=== PATIENT | female | born 1945 | race Caucasian/White ===

== ENCOUNTER 2018-09-07 11:00 | Observation (INO) ==
[2018-09-06 11:54] LABS: BASO# 0.08 X1000 (0.0-0.2); BASO% 1.2 % (0.0-0.8); EOS# 0.15 X1000 (0.0-0.7); EOS% 2.2 % (0.0-10.0); HEMATOCRIT 26.8 % (37.0-47.0); HEMOGLOBIN 7.9 g/dL (12.0-16.0); LYMPH# 1.52 X1000 (1.2-3.4); LYMPH% 22.6 % (20.5-51.1); MCH 23.7 PG (27-31); MCHC 29.5 g/dL (33-37); MCV 80.5 FL (81-99); MONO# 0.98 X1000 (0.11-0.59); MONO% 14.5 % (1.7-9.3); MPV 9.1 FL (7.4-10.4); NEUT# 4.01 X1000 (1.4-6.5); NEUT% 59.5 % (42.2-75.2); PLT 556 X1000 (130-400); RBC 3.33 XMIL (4.2-5.4); RDW 17.3 % (11.5-14.5); WBC 6.74 X1000 (4.8-10.8)
--- NOTE | 2018-09-06 12:11 | EKG Report ---
Test Performed on : 09/06/2018 10:18:21 AM Test Reason : PAT Blood Pressure : / mmHG Vent. Rate : 085 BPM Atrial Rate : 085 BPM P-R Int : 196 ms QRS Dur : 132 ms QT Int : 460 ms P-R-T Axes : 041 043 -05 degrees QTc Int : 547 ms Normal sinus rhythm. Right bundle branch block Possible Inferior infarct (cited on or before 13-JUN-2018) Abnormal ECG When compared with ECG of 13-JUN-2018 15:59, Significant changes have occurred Confirmed by Tomy LARA, Lonny Zarate ([id number]) on 09/06/2018 3:01:40 PM
[2018-09-06 12:29] LABS: AGAP 14; BUN 42 mg/dL (8-22); CALCIUM 8.9 mg/dL (8.8-10.2); CHLORIDE 100 mmol/L (98-107); COSMO 289; CREATININE 0.9 mg/dL (0.5-0.9); ESTIMATED GFR > 60; GLUCOSE 185 mg/dL (70-104); POTASSIUM 4.1 mmol/L (3.5-5.1); SODIUM 137 mmol/L (136-145); TCO2 23 mmol/L (25-35)
[2018-09-07] MEDS ORDERED: REGLAN ONE (13:21)
[2018-09-07] MEDS ORDERED: PEPCID ONE (13:21)
[2018-09-07] MEDS ORDERED: LR 1,000 ML ONE (13:21)
[2018-09-07] MEDS ORDERED: DIPRIVAN 1% ONE (13:28)
[2018-09-07] MEDS ORDERED: CORDARONE PO ONE (14:00)
[2018-09-07] MEDS ORDERED: CARDIZEM CD PO ONE (14:00)
--- NOTE | 2018-09-07 15:11 | CONSULTATION ---
DATE OF CONSULTATION: 09/07/2018 IMPRESSION: 1. Preoperative evaluation for surgery on sacral decubitus requested. 2. Atherosclerotic coronary artery disease. A. The patient presented with unstable angina in the setting of atrial fibrillation and rapid ventricular rate in late May of this year. She was transferred to [facility] in [place] and had a complicated course. She had coronary artery bypass surgery complicated by postop pneumonia as well as deep venous thrombosis. B. The patient continues without angina. Echocardiography just performed demonstrates normal left ventricular ejection fraction. 3. Longstanding diabetes mellitus requiring insulin for control. 4. Previous hypertension. RECOMMENDATIONS: 1. Given that the patient has no new angina and manifests no signs of congestive heart failure, with echocardiography showing normal left ventricular ejection fraction, she should be an acceptable cardiac risk for surgery for a decubitus ulcer in the sacral region. 2. Obtain fasting lipid profile. HISTORY: This 73-year-old, white female with a past history of atherosclerotic coronary artery disease, coronary bypass surgery a couple of months ago, postoperative pneumonia, postoperative DVT, and insulin-dependent diabetes mellitus came to the hospital today for surgery on a sacral decubitus ulcer. Preoperative cardiac consultation was requested. She is not known to our system. She has longstanding diabetes mellitus for over 20 years and requires insulin. She developed acute chest pain in late May of this year. She was taken by ambulance to [facility] ER. She was found to be in atrial fibrillation with rapid ventricular rate. She describes symptoms of chest discomfort as well as feeling weak and lightheaded. She was transferred to [facility] in [place] as there was no room availability in [place]. She had a rather complicated course there. Records are not yet available. She had a cardiac catheterization and subsequently had an intra-aortic balloon pump performed. She apparently had significant multivessel coronary atherosclerosis. Cardiac catheterization report is not available. She ultimately underwent coronary artery bypass grafting. She recalls that her surgeon remarked that she had a 10% or less injury to her heart in the whole process. Postoperatively, she had problems with pneumonia, delayed recovery, as well as DVT in the lower extremities. She was treated with anticoagulation and antibiotic coverage. She ultimately was discharged to a [facility] facility after a several week hospitalization. She has been slow to regain her previous activity level and has been in the bed quite a bit. She has developed a sacral decubitus ulcer that was apparently present prior to her transfer to the [facility] home. This has been treated with wound VAC. She has since been discharged to home. She has not had any problems with shortness of breath, angina, or palpitations. PAST MEDICAL HISTORY: 1. Atherosclerotic coronary disease as outlined above. 2. Diabetes mellitus for at least 20 years, requiring insulin for control. 3. Previous hypertension. 4. Previous atrial fibrillation. PAST SURGICAL HISTORY: Includes multiple back surgeries, hysterectomy, and coronary artery bypass surgery earlier this year. ALLERGIES: She is allergic or intolerant to penicillin and sulfa. MEDICATIONS: As listed. It is noteworthy that she has been on Eliquis and this has been held one day to facilitate surgery. SOCIAL HISTORY: She does not smoke or use alcohol. FAMILY HISTORY: Positive for coronary artery disease and diabetes mellitus. REVIEW OF SYSTEMS: Pulmonary: Negative. Gastrointestinal: Negative. Constitutional: Negative. Remainder of the review of systems negative/noncontributory with 14 total systems reviewed. PHYSICAL EXAMINATION: Reveals an overweight, older, white female in no distress. Vital Signs: Blood pressure 131/63, heart rate 78 and regular, oxygen saturation 99%. HEENT Examination: Extraocular muscles appear intact. Mucous membranes moist. Neck: Supple without jugular venous distention. There are no carotid bruits. Chest: Clear to auscultation. Cardiac: Examination reveals a regular rate and rhythm without appreciable murmur or gallop. Abdomen: Soft. Bowel sounds are normal. Extremities: Without edema. Neurologic: Examination reveals her to be alert and fully oriented. Speech is fluent. She moves all 4 extremities equally well. Skin: Warm and dry. Psychiatric: Examination reveals her mood to be appropriate. DIAGNOSTIC DATA: A recent 12 lead EKG is reviewed and demonstrates normal sinus rhythm, right bundle branch block, and possible inferior infarct of undetermined age. Recent laboratory data is reviewed and includes a white blood cell count of 6.74, hematocrit 26.8, hemoglobin 7.9, platelet count of 556,000. Sodium 137, potassium 4.1, chloride 100, carbon dioxide 23, BUN 42, creatinine 0.9, glucose 185. Total triglycerides 50, total cholesterol 57, LDL cholesterol 27, HDL cholesterol 26, VLDL cholesterol 10. cc: Eduardo Alfonso MD
[2018-09-07] MEDS ORDERED: NEO-SYNEPHRINE ONE (15:38)
[2018-09-07] MEDS ORDERED: DECADRON ONE (15:38)
[2018-09-07] MEDS ORDERED: ZOFRAN ONE (15:38)
[2018-09-07] MEDS: DILAUDID ONE ×3 (15:55→16:15)
[2018-09-07] MEDS ORDERED: DILAUDID IV PRN (16:37)
[2018-09-07] MEDS ORDERED: NORCO-7.5 PO PRN (16:37)
[2018-09-07] MEDS ORDERED: ZOFRAN IV PRN (16:37)
[2018-09-07] MEDS: HUMULIN R SUBQ SCH ×2 (18:24→21:49)
[2018-09-07] MEDS ORDERED: LIPITOR PO SCH (21:00)
[2018-09-07] MEDS ORDERED: RESTORIL PO SCH (21:00)
--- NOTE | 2018-09-07 21:32 | OPERATIVE NOTE ---
PROCEDURE DATE: 09/07/2018 PREOPERATIVE DIAGNOSES: 1. Infected sacral decubitus ulcer stage III. 2. Coronary artery disease. POSTOPERATIVE DIAGNOSES: 1. Infected sacral decubitus ulcer stage IV. 2. Coronary artery disease. OPERATION: Excisional debridement of skin, subcutaneous tissue and fascia of sacral ulcer, greater than 20 cm2. SURGEON: Noah Del Valle MD ANESTHESIA: General. ESTIMATED BLOOD LOSS: 75 mL COMPLICATIONS: None apparent. SPECIMENS: None. FINDINGS: The small tract that she had preoperatively was leading to an extensive large sacral decubitus ulcer measuring 10 x 7 x 4 cm, that was irregular in shape with excessive hypergranulation tissue, necrotic subcutaneous fat and fascia, and some purulence. The extent of this wound carried down to the thin soft tissue over her sacral bone, although there was no direct bone completely exposed. I do not think she has sacral osteoporosis. There were multiple sinus tracts tunneling away from the central ulcer. All of these were opened up and debrided sharply, and excised back to healthier bleeding tissue. PROCEDURE: She was brought to the operating room and placed on her left side. General anesthesia was induced prior to this. A beanbag held her in place. She was prepped and draped in the usual sterile fashion. A knife was used to open up the tract of the of the open wound and tunneling that I had identified preoperatively. After doing this, it became apparent that there was a much more extensive ulcer bed that was not healing. I followed the tracking into 3 separate directions, one toward her right and 2 toward her left. I opened these up sharply with a knife and had the above findings. The wound bed was extensively debrided sharply with a curette, the knife and cautery back to healthier bleeding edges. I excised this nonviable tissue, which included all layers except the bone. I then began working on hemostasis. There was a moderate amount of bleeding secondary to her Eliquis. Cautery was used for hemostasis as well as direct pressure. I also used Surgicel gauze. Once I was satisfied that there was minor oozing, I then packed the wound first with Surgicel gauze, then Vashe-moistened Kerlix, and then 4 x 4s and an ABD pad were placed. She tolerated this well. There were no apparent complications. She will be admitted for further observation. cc: Noah Del Valle MD
[2018-09-07] MEDS: DOXYCYCLINE PO SCH (21:48)
[2018-09-08 03:59] LABS: URINE SOURCE CLEAN CATCH
[2018-09-08 04:04] LABS: BILIRUBIN URINE NEGATIVE (NEGATIVE); BLOOD URINE NEGATIVE (NEGATIVE); COLOR YELLOW; GLUCOSE URINE NEGATIVE (NEGATIVE); KETONE URINE NEGATIVE (NEGATIVE); LEUKOCYTES URINE NEGATIVE (NEGATIVE); NITRITE URINE NEGATIVE (NEGATIVE); PROTEIN URINE TRACE mg/dL (NEGATIVE); SP GRAVITY URINE 1.018; TURBIDITY URINE CLEAR (CLEAR); UROBILINOGEN URINE NORMAL (NORMAL)
[2018-09-08 04:05] LABS: UR EPITHELIAL CELLS <10 /HPF (<10); URINE BACTERIA NEGATIVE /HPF; URINE RBC <10 /HPF (<10); URINE WBC <10 /HPF (<10)
[2018-09-08] MEDS: HUMULIN R SUBQ SCH ×2 (06:42→12:27)
[2018-09-08] MEDS ORDERED: LANTUS INSULIN SUBQ SCH (09:00)
[2018-09-08] MEDS ORDERED: LASIX PO SCH (09:00)
[2018-09-08] MEDS ORDERED: CORDARONE PO SCH (09:00)
[2018-09-08] MEDS ORDERED: CELEXA PO SCH (09:00)
[2018-09-08] MEDS ORDERED: FLOMAX PO SCH (09:00)
[2018-09-08] MEDS ORDERED: CARDIZEM CD PO SCH (09:00)
[2018-09-08] MEDS ORDERED: KLOR-CON PO SCH (09:00)
[2018-09-08] MEDS ORDERED: SYNTHROID PO SCH (09:00)
[2018-09-08] MEDS ORDERED: EFFEXOR XR PO SCH (09:00)
[2018-09-08] MEDS ORDERED: PERIDEX MT SCH (09:00)
[2018-09-08] MEDS ORDERED: ELIQUIS PO SCH (09:00)
[2018-09-08] MEDS: DOXYCYCLINE PO SCH (09:33)
--- NOTE | 2018-09-08 09:48 | ECHO REPORT ---
ORDER DATE: 09/07/2018 INTERPRETING PHYSICIAN: Dr. Huerta CLINICAL INDICATIONS: Stroke, previous bypass. M-MODE MEASUREMENTS: Left ventricle end diastole: 5.6 cm. Left ventricle end systole: 4.2 cm. Posterior wall: 0.9 cm. Interventricular septum: 0.9 cm. Left atrium: 3.2 cm. Aortic diameter: 3.0 cm. SUMMARY OF 2-DIMENSIONAL IMAGING: The left ventricular function appears to be normal. Ejection fraction 56%. Optison was added to aid in visualization of the endocardium. There is no wall motion abnormality. The right ventricle appears to be normal. The left atrium may be mildly enlarged. The mitral valve shows normal opening. Color flow mapping indicates mild degree of regurgitation. Pulse wave Doppler of mitral inflow shows mild reversal of the E/A ratio. Ratio is 0.8. Tissue Doppler of septal and lateral mitral annulus averages 9 cm per second. Pulmonary venous flow shows some predominance of the diastolic component. There is really no obvious diastolic dysfunction. Aortic valve is normal. Color flow mapping unremarkable. Tricuspid valve shows mild degree of regurgitation. Pulmonary pressure is probably in the order of 30-35 mmHg. Pulmonic valve appears to be grossly normal. Epicardial fat pad is noted. This study was difficult and contrast had to be added. cc: MD Eduardo Mauro MD Jason R. Seale, MD MTDD
[2018-09-08 11:25] VITALS: BP 115/56
--- NOTE | 2018-09-08 13:39 | GENERAL SURGERY PROGRESS NOTE ---
DATE: 09/08/2018 SUBJECTIVE: The patient feels okay. No problems overnight. OBJECTIVE: She is afebrile. Vital signs are stable. General: She is awake, alert, and oriented x3. No acute distress. Skin: Her sacral wound was examined. The packing was removed. There were no signs of any active bleeding or gross pus. ASSESSMENT AND PLAN: A 73-year-old female status post extensive debridement of infected sacral decubitus ulcer. The wound appears clean now and we will proceed with negative pressure wound therapy and discharge home. cc: Noah Del Valle MD
== END 2018-09-08 15:09 | disposition home health service (06) ==
LOC: 4N 11:00 → PAT 11:00
PROVIDERS: ADMIT Surgery; ATTEND Surgery
CPT/HCPCS: 80048; 80061; 81001; 82948; 83721; 85025; 93005; 93010; 93306; 93308; 94761; 94799; A9270; C8929; J1100; J1170; J1815; J2370; J2405; J7120; Q9957; XXXXX

== ENCOUNTER 2018-09-12 12:13 | Inpatient (IN) ==
[2018-09-12 13:26] LABS: BASO# 0.04 X1000 (0.0-0.2); BASO% 0.6 % (0.0-0.8); EOS% 1.5 % (0.0-10.0); HEMATOCRIT 18.8 % (37.0-47.0); HEMOGLOBIN 5.5 g/dL (12.0-16.0); LYMPH# 1.17 X1000 (1.2-3.4); LYMPH% 17.3 % (20.5-51.1); MCH 23.2 PG (27-31); MCHC 29.3 g/dL (33-37); MCV 79.3 FL (81-99); MONO# 0.58 X1000 (0.11-0.59); MONO% 8.6 % (1.7-9.3); MPV 9.5 FL (7.4-10.4); NEUT# 4.87 X1000 (1.4-6.5); PLT 440 X1000 (130-400); RBC 2.37 XMIL (4.2-5.4); RDW 16.5 % (11.5-14.5); WBC 6.76 X1000 (4.8-10.8)
[2018-09-12 13:34] LABS: AGAP 12; ALB/GLOB RATIO 1.3; ALBUMIN 3.2 g/dL (3.5-5.0); ALKALINE PHOSPHATASE 125 U/L (32-104); BUN 28 mg/dL (8-22); CALCIUM 8.7 mg/dL (8.8-10.2); CHLORIDE 101 mmol/L (98-107); COSMO 287; CREATININE 0.7 mg/dL (0.5-0.9); ESTIMATED GFR > 60; GLUCOSE 209 mg/dL (70-104); GOT 13 U/L (10-30); GPT 8 U/L (10-36); SODIUM 138 mmol/L (136-145); TCO2 25 mmol/L (25-35); TOTAL BILIRUBIN 0.21 mg/dL (0.20-1.00); TOTAL PROTEIN 5.6 g/dL (6.3-8.3)
[2018-09-12] MEDS ORDERED: NS 1,000 ML IV ONE (13:38)
[2018-09-12 14:02] LABS: IRON SATURATION 5 %; TIBC 215 ug/dL; TOTAL IRON 10 ug/dL (49-151); UNBOUND IRON 205 ug/dL (112-346)
[2018-09-12 14:04] LABS: INR 1.45; PROTIME 18.7 Seconds (11.0-16.0)
[2018-09-12 14:27] LABS: URINE SOURCE CLEAN CATCH
[2018-09-12 14:29] LABS: FERRITIN 16 ng/mL (13-150)
[2018-09-12 14:39] LABS: BILIRUBIN URINE NEGATIVE (NEGATIVE); BLOOD URINE NEGATIVE (NEGATIVE); COLOR YELLOW; GLUCOSE URINE NEGATIVE (NEGATIVE); KETONE URINE TRACE mg/dL (NEGATIVE); LEUKOCYTES URINE NEGATIVE (NEGATIVE); NITRITE URINE NEGATIVE (NEGATIVE); PH URINE 5.5; PROTEIN URINE NEGATIVE (NEGATIVE); SP GRAVITY URINE 1.019; TURBIDITY URINE CLEAR (CLEAR); UROBILINOGEN URINE NORMAL (NORMAL)
[2018-09-12 14:40] LABS: UR EPITHELIAL CELLS <10 /HPF (<10); URINE BACTERIA NEGATIVE /HPF; URINE RBC <10 /HPF (<10); URINE WBC <10 /HPF (<10)
[2018-09-12 14:41] LABS: EOS 2 % (1-10); LYMPHS 13 % (21-51); MONO 7 % (1-9); SEGS 78 % (42-75)
[2018-09-12 14:42] LABS: ANISOCYTOSIS 1+; HYPOCHROM 3+; LARGE PLATELETS OCCASIONAL
[2018-09-12 15:21] LABS: HEMOGLOBIN A1C 6.7 % (4.8-6.0)
--- NOTE | 2018-09-12 15:29 | HISTORY AND PHYSICAL ---
Ms. Yang, 73-year-old. She had a heart attack in May. Went to [facility] in [place], had lay flat on back with a balloon pump and then underwent 3-vessel bypass surgery. Postop she developed a sacral skin ulcer. It was debrided and started on wound VAC on Wednesday. Today is Wednesday so approximately [address] Del Valle and their concern was that she just was very weak, she looks very pale and they brought her here to the emergency room. They do not report any fever, chills. She has not been eating a whole lot but they have not noticed a drastic weight change and no blood noted in the stool. Stools may have been a little bit dark. They had not really noted that. No vomiting or diarrhea. ALLERGIES: Penicillin, sulfa drugs. FAMILY HISTORY: Mother with arthritis and colon cancer. Brother and father with heart disease, heart disease in male family members before age 55, course she just recently had 3-vessel bypass. SOCIAL HISTORY: Rare drink of alcohol on occasion. Tobacco never smoked. PHYSICAL EXAM: Awake and alert, looks very pale. Skin very pale. Temperature 98.1 degrees, pulse 78, respirations 18, blood pressure 116/68. Pupils are equal. No distended neck veins. CVP less than 6 cm from the right atrium. LUNGS: Clear anterolateral. CARDIOVASCULAR: Regular rhythm, rate without murmur or S3. ABDOMEN: Soft. SKIN: Warm and dry. Weight 190 pounds, height 5 feet 5 inches. No rashes. Conjunctiva pale with pallor. Gingiva with pallor. No oral, nasal mucosa lesions I could appreciate. She has a sacral wound VAC in place. LAB: White count 6760, hematocrit 18, hemoglobin 5.5, platelet count 440,000. Sodium 138, potassium 4.0, chloride 100, bicarb 25, BUN 28, creatinine 0.7, blood sugar 209. Her iron was 10, total iron binding capacity 215, ferritin was 16, transaminases unremarkable. Urine pending at this time. Stools Hemoccult was heme positive. ASSESSMENT AND PLAN: 1. Microcytic anemia, suspect gastrointestinal blood loss possibly from gastritis. Will put her on proton pump inhibitor. Right now we will put her on IV either Nexium or Protonix, whichever is available 40 mg IV q.12 hours. I think we can give that to her p.o. though she is able to swallow so what will do is give her Protonix 40 mg p.o. twice a day. We will start her on Carafate 1 g p.o. 4 times a day. I am going to give her a full liquid diet for today and probably advance that tomorrow. We are going to give her 2 units of packed red blood cells and then give her normal saline and run that in at 75 mL an hour. I do not have any report of congestive heart failure, course she just had bypass surgery. We will watch her volume status but I think she can handle the volume. 2. Coronary artery disease status post triple bypass surgery back in end of May. She has not had any chest pain or complaints of palpitations. 3. History of hypercholesterolemia. Continue Lipitor. 4. History of atrial fibrillation. She is on amiodarone 200 mg a day and she is on Eliquis and I think we will go ahead and continue the Eliquis at 5 mg. I think she is supposed to be taking that twice a day. 5. Sacral decubitus. She has been on hydroxyzine 100 mg b.i.d. by mouth and I think they grew out Escherichia coli and Staph aureus from the cultures. We will get surgery to look at the wound and get Irene to help with wound care. 6. Depression and anxiety. She is on Effexor. We will continue that. She has taken tamsulosin which I believe that is for urinary frequency or hyperactive bladder but I guess will continue that Flomax 0.4 mg daily. 7. Diabetes mellitus. Follow her pattern sugars and put her on sliding scale. She was getting Lantus 24 units q.a.m. and will continue that. cc: MD Noah Etienne MD
[2018-09-12] MEDS: HUMULIN R SUBQ SCH ×2 (16:20→20:11)
[2018-09-12] MEDS ORDERED: CARAFATE PO SCH (17:00)
--- NOTE | 2018-09-12 18:40 | GASTROENTEROLOGY CONSULTATION ---
DATE: 09/12/2018 REASON FOR CONSULTATION: Profound microcytic anemia. HISTORY OF PRESENT ILLNESS: Pleasant, 73-year-old lady who had a heart attack and had triple- vessel bypass followed by [*]. On Wednesday she had wound debridement. I am not sure how much she bled but she was feeling very weak. There was a question whether or not she has dark stool. She has not had previous history of GI bleed. She is on Eliquis. ALLERGIES: Penicillin and sulfa. FAMILY HISTORY: Colon cancer with the mother, heart disease. SOCIAL: Does not smoke. Drinks socially. PHYSICAL EXAMINATION: General: Awake, alert, very pale. Vital signs: Temp 98 degrees, pulse 78, respiration 18, blood pressure 116/68. Lungs: Clear. Heart: Regular rhythm. Abdomen: Soft. Skin: She has a sacral wound with VAC in place. LABORATORY: White count 6,000, hemoglobin 5.5, hematocrit 18. Iron 10, total iron binding capacity 215, ferritin 16. IMPRESSIONS: 1. Microcytic anemia, multifactorial, could be related to her wound debridement, Eliquis, and recent bypass or a combination of the above, could be an upper GI source. 2. Coronary artery disease. 3. Hypercholesteremia. 4. Atrial fibrillation. 5. Sacral decubitus ulcer. 6. Gastrointestinal prophylaxis. PLAN: She is on Protonix. Will schedule for EGD tomorrow and decide further management. cc: Diamond Huitron MD
[2018-09-12] MEDS: NORCO-7.5 PO PRN (20:10)
[2018-09-12] MEDS: LIPITOR PO SCH (20:10)
[2018-09-12] MEDS: PRILOSEC PO SCH (20:10)
[2018-09-12] MEDS: RESTORIL PO SCH (20:11)
--- NOTE | 2018-09-12 20:21 | GENERAL SURGERY CONSULTATION ---
DATE: 09/12/2018 HISTORY OF PRESENT ILLNESS: This is a 73-year-old female who developed a decubitus wound after recent cardiac intervention and complicated hospital course. She was debrided last Wednesday by Dr. Del Valle and has a wound VAC in place. Noted to be hypotensive via the home health nurse and was transferred to the ER for further management of this. Patient says she felt okay until yesterday she began feeling kind of weak, presyncopal at times. No fevers, no tachycardia. She denies any GI bleeding. Wound VAC change been going okay. MEDICAL HISTORY: Coronary disease. SURGICAL HISTORY: Coronary bypass including balloon pump. She is on Eliquis. Decubitus debridement, coronary artery bypass grafting. SOCIAL HISTORY: No tobacco, alcohol, or drugs. She has a daughter here with her. FAMILY HISTORY: Reviewed and significant for colon cancer in her mother. REVIEW OF SYSTEMS: Otherwise 10 point negative. EXAM: She is afebrile, pulse 84, blood pressure 125/59, O2 saturation 100%.General: She is alert, no acute distress. HEENT: No scleral icterus. No cervical mass. Cardiovascular: Normal rate. Pulmonary: No increased work of breathing. Abdomen: Soft, nontender, nondistended. Musculoskeletal: There is a sacral wound VAC with no cellulitis. No crepitus. No visible necrosis. Integument: Is warm, dry. Peripheral vascular: No lower extremity edema. Psychiatric: Appropriate affect. Neurologic: Generalized weakness. LAB: White count 6, hematocrit is 18. INR is 1.48, creatinine 0.7, bilirubin is normal. Troponins are normal. Urinalysis shows trace ketones but otherwise negative. ASSESSMENT AND PLAN: This is a 73-year-old female with anemia. She has a decubitus wound. Will keep her VAC in place and plan on changing this tomorrow. I do not see signs of infection here. Dr. Huitron has been involved from a gastroenterology standpoint. I do agree with endoscopy to work up for anemia holding anticoagulants she is currently been transfused and would continue with this. Will follow along. Dr. Del Valle will be back tomorrow. cc: Elkin Sargent MD
[2018-09-13 03:32] LABS: URINE SOURCE CATH
[2018-09-13 03:35] LABS: BILIRUBIN URINE NEGATIVE (NEGATIVE); BLOOD URINE NEGATIVE (NEGATIVE); COLOR YELLOW; GLUCOSE URINE NEGATIVE (NEGATIVE); KETONE URINE NEGATIVE (NEGATIVE); LEUKOCYTES URINE NEGATIVE (NEGATIVE); NITRITE URINE NEGATIVE (NEGATIVE); PROTEIN URINE TRACE mg/dL (NEGATIVE); TURBIDITY URINE CLEAR (CLEAR); UROBILINOGEN URINE NORMAL (NORMAL)
[2018-09-13 03:37] LABS: UR EPITHELIAL CELLS <10 /HPF (<10); URINE BACTERIA NEGATIVE /HPF; URINE RBC <10 /HPF (<10); URINE WBC <10 /HPF (<10)
[2018-09-13] MEDS: SYNTHROID PO SCH (06:01)
[2018-09-13] MEDS: PRILOSEC PO SCH ×2 (06:02→21:09)
[2018-09-13] MEDS: HUMULIN R SUBQ SCH ×4 (06:02→21:09)
[2018-09-13 07:36] LABS: BASO# 0.09 X1000 (0.0-0.2); BASO% 1.1 % (0.0-0.8); EOS# 0.35 X1000 (0.0-0.7); EOS% 4.4 % (0.0-10.0); HEMATOCRIT 26.1 % (37.0-47.0); LYMPH# 2.22 X1000 (1.2-3.4); MCH 24.7 PG (27-31); MCHC 30.7 g/dL (33-37); MCV 80.6 FL (81-99); MONO# 1.11 X1000 (0.11-0.59); MPV 9.4 FL (7.4-10.4); NEUT# 4.16 X1000 (1.4-6.5); NEUT% 52.5 % (42.2-75.2); PLT 419 X1000 (130-400); RBC 3.24 XMIL (4.2-5.4); RDW 16.2 % (11.5-14.5); WBC 7.93 X1000 (4.8-10.8)
[2018-09-13 07:46] LABS: AGAP 13; BUN 16 mg/dL (8-22); CALCIUM 7.9 mg/dL (8.8-10.2); CHLORIDE 106 mmol/L (98-107); COSMO 287; CREATININE 0.6 mg/dL (0.5-0.9); ESTIMATED GFR > 60; GLUCOSE 152 mg/dL (70-104); MAGNESIUM 1.8 mg/dL (1.5-2.7); POTASSIUM 3.5 mmol/L (3.5-5.1); SODIUM 142 mmol/L (136-145); TCO2 23 mmol/L (25-35)
[2018-09-13] MEDS ORDERED: DIPRIVAN 1% ONE (08:28)
[2018-09-13] MEDS ORDERED: XYLOCAINE-MPF 2% ONE (08:28)
--- NOTE | 2018-09-13 10:21 | OPERATIVE NOTE ---
PROCEDURE DATE: 09/13/2018 PROCEDURE PERFORMED: Upper GI endoscopy. PROVIDER: Franc Alfonso MD. INDICATIONS: Anemia, rule out upper GI bleeding. MEDICATIONS: Monitored anesthesia care. DESCRIPTION OF PROCEDURE: Prior to the procedure, history and physical was performed. Patient's medication and allergies were reviewed. The patient's tolerance to previous anesthesia was also reviewed. The risks and benefits of the procedure, and the sedation options and risks were discussed with the patient. All questions were answered. Informed consent was obtained. After reviewing the risks and benefits, and the patient was deemed in satisfactory condition to undergo the procedure, the endoscope was passed under direct visualization. Throughout the procedure, the patient's blood pressure, pulse, and oxygen saturation were monitored continuously. The endoscope was introduced through the mouth and advanced to the second part of the duodenum. The upper GI endoscopy was accomplished without difficulty. The patient tolerated the procedure well. COMPLICATIONS: No immediate complications. ESTIMATED BLOOD LOSS: Minimal. FINDINGS: Normal esophagus. Z-line was regular at 40 cm from the incisors. Normal stomach. Random gastric biopsies were obtained to rule out H. pylori. Normal duodenum. Random duodenal biopsies were obtained to rule out celiac disease. RECOMMENDATIONS: Await pathology results. Resume diabetic diet. The patient will need outpatient colonoscopy when she recovers from her recent surgery. Start iron replacement therapy. No indication for Carafate or PPI at this time. We will follow with you. Please call with any questions or concerns.
[2018-09-13] MEDS: CELEXA PO SCH (11:28)
[2018-09-13] MEDS: FLOMAX PO SCH (11:29)
[2018-09-13] MEDS: CORDARONE PO SCH (11:29)
[2018-09-13] MEDS: EFFEXOR XR PO SCH (11:30)
[2018-09-13] MEDS: LANTUS INSULIN SUBQ SCH (11:30)
--- NOTE | 2018-09-13 15:50 | PROVIDER DOCUMENTATION ---
This chart was entered by Emilia Pham Scribe, acting as scribe for John Byrnes MD. HPI-General Adult - General Chief Complaint: Weakness Stated Complaint: WEAKNESS Time Seen by Provider: 09/12/18 12:44 Source: patient, family (daughter) Allergies/Adverse Reactions: Patient Allergies Allergy/AdvReac Type Severity Reaction Status Date / Time Penicillins Allergy SWELLING Verified 09/12/18 14:47 Sulfa (Sulfonamide Allergy ITCHING Verified 09/12/18 14:47 Antibiotics) Home Medications: Home Medication List Medication Instructions Recorded Confirmed Last Taken Type ATORVAstatin [Lipitor] 80 mg PO QHS 09/06/18 09/12/18 09/06/18 23:00 History 80 Amiodarone [Cordarone] 200 mg PO DAILY 09/06/18 09/12/18 09/06/18 11:00 History 200 Apixaban [Eliquis] 5 mg PO DAILY 09/06/18 09/12/18 09/06/18 23:00 History 5 Citalopram [Celexa] 10 mg PO DAILY 09/06/18 09/12/18 09/06/18 23:00 History 10 Diltiazem HCl [Diltiazem 24Hr Cd] 300 mg PO DAILY 09/06/18 09/12/18 09/06/18 11:00 History 300 Doxycycline Hyclate 100 mg PO BID 09/06/18 09/12/18 09/06/18 23:00 History 100 Furosemide [Lasix] 40 mg PO DAILY 09/06/18 09/12/18 09/06/18 11:00 History 40 Insulin Glargine,Hum.rec.anlog 24 unit SQ QAM 09/06/18 09/12/18 09/06/18 11:00 History [Lantus Solostar] 24 Insulin Human Regular [Humulin R] 0 unit SUBQ DIRECTED PRN PRN 09/06/18 09/12/18 09/07/18 00:00 History 4 Levothyroxine [Synthroid] 100 microgm PO DAILY 09/06/18 09/12/18 09/06/18 07:00 History 100 Potassium Chloride 20 meq PO DAILY 09/06/18 09/12/18 09/06/18 23:00 History 20 Tamsulosin [Flomax] 0.4 mg PO DAILY 09/06/18 09/12/18 09/06/18 History 0.4 Temazepam 15 mg PO QHS 09/06/18 09/12/18 09/06/18 23:00 History 15 Venlafaxine E.r. [Effexor Xr] 150 mg PO DAILY 09/06/18 09/12/18 09/06/18 11:00 History 150 Hydrocodone/APAP 7.5 mg/325 mg 1 ea PO EVERY OTHER DAY PRN #20 tab 09/08/18 09/12/18 Unknown Rx [[place]-7.5] - History of Present Illness -Gen Adult Nature of Presenting Problems: Patient is a 73 year old female who presents with buttocks pain, nausea, fatigue and weakness. Patient's daughter states patient had open heart surgery on June 20 and while the patient was in the hospital she formed a bed sore on her buttocks. Daughter reports patient had a wound vac placed [address] Del Valle. Daughter states patient is currently on Doxy. Daughter reports the home health nurse stated patient's blood pressure was 80/40 and her heart rate was in the 50's. Location of Pain/Injury: reports: other (buttocks) Pain Radiation: reports: no radiation Quality of Pain: reports: aching Severity: reports: mild Onset/Duration: reports: gradual Timing: reports: still present Context/Activities at Onset: reports: light activity Modifying Factors: improves with: nothing Associated Symptoms: reports: fatigue, nausea, weakness Similar Symptoms Previously?: Yes Recently seen or treated by another doctor?: Yes Review of Systems - Adult - REVIEW OF SYSTEMS - ADULT Constitutional: reports: see HPI, adrián. denies: chills, fever Eyes: reports: no symptoms reported Ears, Nose, Mouth & Throat: reports: no symptoms reported Cardiovascular: reports: no symptoms reported Respiratory: reports: no symptoms reported Gastrointestinal: reports: see HPI, nausea. denies: abdominal pain, diarrhea, vomiting Genitourinary: reports: no symptoms reported Musculoskeletal: reports: see HPI, muscle weakness, other (buttocks pain). denies: back pain, muscle aches, neck pain Integumentary: reports: no symptoms reported Neurological: reports: no symptoms reported Psychiatric: reports: no symptoms reported Endocrine: reports: no symptoms reported Hematologic/Lymphatic: reports: no symptoms reported Allergic/Immunologic: reports: no symptoms reported All Other Systems: Reviewed and Negative Past History - Adult - PAST MEDICAL HISTORY-ADULT Review of Records: reports: Nursing Assessment Review, Medications Reviewed, Social history reviewed & non-contributory. Major Childhood Illnesses: reports: denies history Cardiovascular: reports: HTN Respiratory: reports: sleep apnea Gastrointestinal: reports: denies history Obstetrical/Gynecological: reports: denies history Genitourinary: reports: denies history Musculoskeletal: reports: denies history Neurological: reports: CVA Endocrine/Immune: reports: Diabetes, thyroid disorder Other Conditions: reports: denies history - PRIOR SURGERIES/PROCEDURES Surgical/Procedure History: reports: reviewed, not pertinent, hysterectomy - IMMUNIZATION STATUS Childhood Immunizations: See Nurse Assessment Flu Vaccine: See Nurse Assessment - FAMILY HISTORY Family History: reviewed, not pertinent - SOCIAL HISTORY Smoking: denies Substance Use: denies Living Situation: family Physical Exam-General - PHYSICAL EXAM-ADULT Initial Vital Signs Reviewed: Yes - CONSTITUTIONAL General Appearance: alert, no apparent distress. negative: lethargic, slow to respond - HEAD, EARS, NOSE, MOUTH & THROAT HENMT: normocephalic/atraumatic. negative: angioedema, hearing deficit - RESPIRATORY Respiratory: chest non-tender, lungs clear, normal breath sounds. negative: crackles, rhonchi - CARDIOVASCULAR Cardiovascular: normal peripheral pulses, regular rate, rhythm. negative: tachycardia, systolic murmur - GASTROINTESTINAL (ABDOMEN) Abdominal Exam: normal bowel sounds, non tender, soft. negative: guarding, rebound - MUSCULOSKELETAL Back Exam: normal inspection. negative: ecchymosis, swelling Extremity: non-tender, normal inspection. negative: deformity, erythema - SKIN Integumentary: normal color, normal turgor, warm/dry, other (wound vac present. no erythema or swelling present to wound vac site.). negative: cyanosis, ecchymosis, erythema, jaundice - NEUROLOGIC Neurologic: grossly normal. negative: aphasia, facial droop - PSYCHIATRIC Psych/Mental Status: normal mood/affect, oriented x 3. negative: anxious Progress - PLAN OF CARE/RESULTS Progress/Plan/Lab Results: Orders Category Date Time Status CBC WITH ELECTRONIC DIFF [HEME] Stat Lab 09/12/18 12:36 Uncollected COMPREHENSIVE METABOLIC PANEL [CHEM] Stat Lab 09/12/18 12:37 Uncollected TROPONIN T Stat Lab 09/12/18 12:37 Uncollected URINALYSIS [URINALYSIS] Stat Lab 09/12/18 12:37 Uncollected EKG [EKG] Stat Ther 09/12/18 12:37 Ordered Result Diagrams: 09/13/18 06:55 09/13/18 06:55 - CONSULTS/PCP/HOSPITALIST Notification #1 *Consult/PCP/Hospitalist*: JOMAR Larkin for Hospitalist Time Discussed: 13:36 (Dr. Farias accepted admit. ) Reason/Comments: Dr. Byrnes consulted with Trae about patient. Consult Disposition: Will see in ED, Admit Departure - Departure Date of Disposition Decision: 09/12/18 Time of Disposition Decision: 13:37 DIAGNOSIS: Anemia, GI bleeding Disposition: ADMITTED INPATIENT 09 Certified Medical Emergency: Emergent Condition: Fair - Critical Care Note This patient required my direct & personal management of CC.: Yes Total Time (mins): 35 Critical Care Statement: This patient required my direct personal management to treat or rule out processes, the absence of which, could potentiallly result in sudden, clinically significant life or limb threatening deterioration. Attestation - Physician/ TOD Attestation Patient care was provided by Advanced Practice Provider:: No The physician spent face to face time with patient:: Yes Advanced Practice Provider documentation review:: Supervising physician onsite and consulted in the evaluation and care of this patient. The physician did have a face to face encounter with the patient. This chart was documented by the indicated scribe, (Emilia Pham, Kory) and accurately reflects the services I performed and decisions made by me, John Byrnes MD, as attested by the provider's signature.
--- NOTE | 2018-09-13 16:43 | PROGRESS NOTE ---
DATE: 09/13/2018 SUBJECTIVE: Ms Yang is feeling much better since her transfusion. She remains afebrile. She has been able to walk to the bathroom. She is tolerating soft diet. No nausea. No pain. OBJECTIVE: Temperature 98.1 degrees, pulse 84, respirations 16, blood pressure 132/62. Pupils are equal and round. No distended neck veins. Lungs are clear in all lung null. Cardiovascular regular rate without murmur or S3. Urine output is 700 mL. ASSESSMENT AND PLAN: Patient underwent upper GI endoscopy and everything looked pretty, normal stomach. Random gastric biopsies obtained to rule out H pylori. Normal duodenum and random duodenal biopsies obtained to rule out celiac disease. So, she is on I think a soft diet, diabetic diet. We started on iron supplement and continue Carafate and PPIs. Her lab this morning hematocrit came from 18 up to 26, her hemoglobin from 5 to 8, MCV was 80. Chemistries look good. We will DC her Gaspar catheter and a good possible she could go home tomorrow. Note the B12 was 700, folate was 1400. cc: Grant Farias MD
[2018-09-13] MEDS: LIPITOR PO SCH (21:09)
[2018-09-13] MEDS: NORCO-7.5 PO PRN (21:09)
[2018-09-13] MEDS: RESTORIL PO SCH (21:09)
[2018-09-14] MEDS: PRILOSEC PO SCH (06:15)
[2018-09-14] MEDS: NORCO-7.5 PO PRN (06:15)
[2018-09-14] MEDS: SYNTHROID PO SCH (06:15)
[2018-09-14 07:05] LABS: BASO# 0.05 X1000 (0.0-0.2); BASO% 0.6 % (0.0-0.8); EOS# 0.46 X1000 (0.0-0.7); EOS% 5.6 % (0.0-10.0); HEMATOCRIT 26.2 % (37.0-47.0); LYMPH# 2.31 X1000 (1.2-3.4); LYMPH% 28.2 % (20.5-51.1); MCH 24.3 PG (27-31); MCHC 30.5 g/dL (33-37); MCV 79.6 FL (81-99); MONO# 1.34 X1000 (0.11-0.59); MONO% 16.3 % (1.7-9.3); MPV 9.2 FL (7.4-10.4); NEUT# 4.04 X1000 (1.4-6.5); NEUT% 49.3 % (42.2-75.2); PLT 418 X1000 (130-400); RBC 3.29 XMIL (4.2-5.4); RDW 15.9 % (11.5-14.5)
[2018-09-14 07:31] LABS: AGAP 11; BUN 12 mg/dL (8-22); CHLORIDE 103 mmol/L (98-107); COSMO 278; CREATININE 0.6 mg/dL (0.5-0.9); ESTIMATED GFR > 60; GLUCOSE 139 mg/dL (70-104); MAGNESIUM 1.8 mg/dL (1.5-2.7); POTASSIUM 3.2 mmol/L (3.5-5.1); SODIUM 138 mmol/L (136-145); TCO2 24 mmol/L (25-35)
[2018-09-14] MEDS: HUMULIN R SUBQ SCH ×3 (07:58→16:54)
[2018-09-14] MEDS: CELEXA PO SCH (10:10)
[2018-09-14] MEDS: CORDARONE PO SCH (10:11)
[2018-09-14] MEDS: EFFEXOR XR PO SCH (10:11)
[2018-09-14] MEDS: LANTUS INSULIN SUBQ SCH (10:11)
[2018-09-14] MEDS: FLOMAX PO SCH (10:11)
--- NOTE | 2018-09-14 12:39 | DISCHARGE SUMMARY ---
ADMISSION DATE: 09/12/2018 DISCHARGE DATE: 09/14/2018 HISTORY OF PRESENT ILLNESS: She is a patient of Dr. Hany Sargent. A 73-year-old. She had a heart attack back in May, went to [facility] in [place]. Had to lay flat on her back with a balloon pump. Underwent three-vessel bypass. Postoperatively, she developed a sacral skin ulcer which they debrided. She has a wound VAC on and they have been following. The day of admission, 09/12/2018, there was concern in the last 5 days of more weakness and very pale. Denied fever or chills. Had not been eating a whole lot and felt she was losing weight. Did not see any blood in the stool but they felt like some of the stools were dark. ALLERGIES: Penicillin and sulfa. HOSPITAL COURSE: She was admitted with microcytic anemia, suspected GI blood loss anemia. Given 2 units of packed red blood cells. Seen by Dr. Huitron. The anemia may also be related to the wound debridement and she is on Eliquis for recent bypass surgery. No sign of active ischemia. Dr. Sargent was able to change out the wound VAC. Did not see any signs of infection. Dr. Alfonso performed an EGD on 09/12/2018. There were no immediate complications. Minimal blood loss. Z- line was regular at 40 cm from incisors. Normal stomach. Random gastric biopsies were obtained for H. pylori. Normal duodenum. Random duodenal biopsies obtained. Resumed her diabetic diet and I think planning on outpatient colonoscopy. Her hemoglobin was 5.5 when she came in, 8.0, and has remained stable and she wanted to go home. She has home health care and followed with wound care for her wound VAC. DISCHARGE MEDICATIONS: Will be as follows: Amiodarone 200 mg a day, Lipitor 80 mg a day, Celexa 10 mg a day. She has hydrocodone that she was getting for pain and I think I will hold that. Lantus insulin 24 units subcutaneously q.a.m., Synthroid 100 mcg daily, Prilosec 40 mg that she will take twice a day p.o. for the next 4 weeks, Flomax 0.4 mg a day, Restoril that she takes at home 15 mg at bedtime p.r.n., Effexor 150 mg p.o. daily. DISCHARGE INSTRUCTIONS: Will follow up with GI and follow up with her primary care and the wound care center. cc: Grant Farias MD
[2018-09-14 16:43] VITALS: BP 123/59
--- NOTE | 2018-09-14 23:01 | PROVIDER PROGRESS NOTE ---
Progress Note SUBJECTIVE: No acute overnight events. No N/V/F, CP, SOB, or rectal bleeding. OBJECTIVE: Last Vital Signs Temp 97.8 F 09/14/18 16:00 Pulse 85 09/14/18 16:00 Resp 16 09/14/18 16:00 BP 123/59 09/14/18 16:00 Pulse Ox 96 09/14/18 16:00 Height 5 ft 5 in Weight 163 lb 3 oz GEN: awake, alert, NAD HEENT: anicteric, MMM, EOMI NECK: supple, no jvd PULM: CTAB, no wheezing CV: RRR, no mrg ABD: soft NT/ND, NABS, no rebound or guarding EXT: no cce NEURO: nonfocal LABS: 09/14/18 09/14/18 06:50 06:50 WBC 8.20 Hgb 8.0 L Plt Count 418 H Sodium 138 Potassium 3.2 L Chloride 103 Carbon Dioxide 24 L BUN 12 Creatinine 0.6 Glucose 139 H EGD 09/13/2018 FINDINGS: Normal esophagus. Z-line was regular at 40 cm from the incisors. Normal stomach. Random gastric biopsies were obtained to rule out H. pylori. Normal duodenum. Random duodenal biopsies were obtained to rule out celiac disease. A/P: Ms. Delicia Yang is a 73 year old woman with history of HTN, HLD, CAD s/p CABG, afib on Eliquis and recent surgery for sacral decubitus ulcer admitted with anemia without over GI bleeding. EGD unremarkable. Patient has sacral wound vac in place. Will plan of diagnostic colonoscopy as outpatient once wound has improved. Hgb has been stable without overt GI bleeding. Patient was discharged today. Please call with questions.
== END 2018-09-14 17:51 | disposition home health service (06) | DRG 812 ==
LOC: SUPCPDRO → ED 12:13 → 4N 13:51
PROVIDERS: ATTEND Emergency Medicine
CPT/HCPCS: 36430; 80048; 80053; 81001; 82270; 82607; 82728; 82746; 83036; 83540; 83550; 83605; 83735; 84439; 84443; 84484; 85025; 85610; 86850; 86900; 86901; 86920; 88305; 88312; 88313; 93005; 99285; A9270; J1815; J7030; P9016